=== PATIENT | male | born 1965 | race Caucasian/White ===

== ENCOUNTER 2018-12-07 10:06 | Day surgery (SDC) | payer SELFPAY ==
[~2018-12-07 10:06] MED LIST: CEFAZOLIN 2 Gram 2 GM/50 ML BAG IVPB ONE; CELECOXIB 100 MG CAPSULE PO ONE; FAMOTIDINE 20MG TABLET PO ONE; MECLIZINE 25 MG TABLET PO ONE; METOCLOPRAMIDE 10 MG TABLET PO ONE
[2018-12-07] MEDS ORDERED: EPHEDRINE SULFATE 50 MG/ML ML IV ONE (10:07)
[2018-12-07] MEDS ORDERED: LIDOCAINE 2% MDV (20MG/ML) 20ML VIAL IV ONE (10:07)
[2018-12-07] MEDS ORDERED: 0.9 % SODIUM CHLORIDE 10 ML VIAL IVP ONE (10:07)
[2018-12-07] MEDS ORDERED: GLYCOPYRROLATE 0.2 MG/ML ML IV ONE (10:07)
[2018-12-07] MEDS ORDERED: ATROPINE SULFATE 0.4 MG/ML 20ML IVP ONE (10:07)
[2018-12-07] MEDS ORDERED: ROPIVACAINE HCL (NAROPIN) /PF 5MG/ML 20ML VIAL IV ONE (10:07)
[2018-12-07] MEDS ORDERED: DEXAMETHASONE 4 MG/ML 1ML VIAL IVP ONE (10:07)
[2018-12-07] MEDS ORDERED: MIDAZOLAM HCL 2MG/2ML VIAL IV ONE (10:07)
[2018-12-07] MEDS ORDERED: PROPOFOL 10 MG/ML VIAL IV ONE (10:07)
[2018-12-07] MEDS ORDERED: FENTANYL PF 100MCG/2ML VIAL IV ONE (10:07)
[2018-12-07] MEDS ORDERED: RINGERS SOLUTION,LACTATED 1,000 ML IV ONE (10:30)
[2018-12-07] MEDS: CEFAZOLIN 2 Gram 2 GM/50 ML BAG IVPB ONE (10:48)
[2018-12-07] MEDS ORDERED: RINGERS SOLUTION,LACTATED 200 ML IV ONE (12:51)
[2018-12-07] MEDS ORDERED: NALOXONE 0.4 MG/1 ML VIAL IVP PRN (13:45)
[2018-12-07] MEDS ORDERED: ZOLPIDEM TARTRATE 5 MG TABLET PO PRN (13:45)
[2018-12-07] MEDS ORDERED: METOCLOPRAMIDE HCL 10 MG/2 ML VIAL IVP PRN (13:45)
[2018-12-07] MEDS ORDERED: HYDROMORPHONE HCL 2 MG/ML VIAL IV PRN (13:45)
[2018-12-07] MEDS ORDERED: ACETAMINOPHEN 325 MG TAB PO PRN (13:45)
[2018-12-07] MEDS ORDERED: MAGNESIUM HYDROXIDE 30 ML UDC PO PRN (13:45)
[2018-12-07] MEDS ORDERED: HYDROCODONE/APAP 5/325MG TABLET PO PRN ×2 (13:45)
[2018-12-07] MEDS ORDERED: DIPHENHYDRAMINE HCL 25 MG CAPSULE PO PRN (13:45)
[2018-12-07] MEDS ORDERED: OXYCODONE HCL/APAP 5MG/325MG TABLET PO PRN ×2 (13:45)
[2018-12-07] MEDS ORDERED: AL HYDROX/MAG HYDROX 30ML UD PO PRN (13:45)
[2018-12-07] MEDS ORDERED: ONDANSETRON HCL IV 4 MG/2 ML VIAL IVP PRN (13:45)
[2018-12-07] MEDS ORDERED: TRAMADOL HCL 50 MG TABLET PO PRN ×2 (13:45)
[2018-12-07] MEDS ORDERED: SENNOSIDES/DOCUSATE SODIUM UD CAPSULE PO PRN (13:45)
[2018-12-07] MEDS: RINGERS SOLUTION,LACTATED 1,000 ML IV SCH (14:31)
[2018-12-07] MEDS ORDERED: TRANEXAMIC ACID 1,000 MG in 0.9 % SODIUM CHLORIDE 100ML 100 ML IVPB ONE (16:00)
--- NOTE | 2018-12-07 16:16 | Rehab Evaluation ---
Patient Information - Patient Information Diagnosis: osteoarthritis R hip Ordered Treatment: OT Evaluate and Treat Status: Initial Evaluation Surgery: Yes Date of Surgery: 12/07/18 (R REBECCA) Past Medical/Surgical Hx: PAST MEDICAL/SURGICAL HISTORY Past Surgical History LTHA 2013 LEFT KNEE SCOPE C SCOPE WISDOM TEETH EXTRACTION PMH - Respiratory Hx Respiratory Disorders Yes Hx Bronchitis Yes: NOTHING RECENT Hx Pneumonia Yes: A BABY Hx Sleep Apnea Yes Hx of CPAP Yes Hx of URI Yes: JUST GETTING OVER COLD Comment: no cold s/s now 11-30-18 PMH - Cardiovascular Hx Cardiovascular Disorders No Hx Hypertension Yes Exercise Tolerance Fair Comment: NOT ACTIVE HE USED TO BE DUE TO HIP AND BACK PAIN PMH - Neuro Hx Neurological Disorders Yes Hx Neuropathy Yes: RIGHT ARM /HAND R/T BACK PMH - GI Hx Gastrointestinal Disorders No Comment: NO DAIRY PRODUCTS PLEASE PMH - Hx Genitourinary Disorders No PMH - Endocrine Hx Endocrine Disorders No PMH - Musculoskeletal Hx Musculoskeletal Disorders Yes Hx Arthritis Yes: RIGHT HIP HAND PMH - Psych Hx Psychiatric Problems No PMH - Hematology/Oncology Hx Hematology/Oncology No Disorders Premorbid Status: Detail (Prior to admit, Pt was indep. all I/ADLs living with spouse in a 1 story home with 7 LADARIUS and wide bilat. hand-rails. The bathroom is equiped with a tub/shower, shower chair, and hand-held shower along with a raised toilet with grab bars. He has a hurricane cane. Spouse is available to assist as needed.) Social History: Detail Precautions: [place], Fall, Other (WBAT R LE; posterior hip prec.) - Time With Patient Total Time Spent With Patient (Min): 23 (1 eval (10:23-10:43)) Treatment Procedures: Detail (OT eval: low complexity) Subjective Information - Subjective Information Per Patient (Pt agreeable to OT eval. Spouse present.) Objective Data - Pain Pain Present: Yes Pain Scale Used: Numeric (1 - 10) (2/10 R hip) - Mental Status Patient Orientation: Oriented x3 - Visual Perception Appears within normal limits for therapeutic activities - ROM Within normal limits - Strength/Tone Within normal limits - Coordination Appears within normal limits for therapeutic activities - Bed Mobility Independent (Modified indep. bed mobility supine >< EOB with initial verbal instruction for successful techs to move R LE without breaking hip prec.) - Transfers Independent (Indep. sit >< stand from low surfaces to FWW, good safety awareness.) - Balance Balance Standing: Good - Sensation Intact - Gait Detail (Functional mobility within bedroom with FWW with supervision progressing to mod I.) - ADL's/IADL's Detail (OT educ. Pt and spouse on adaptive LB dressing tech with sock aide, low heel builder, and tedhose, Pt verbalizes understanding but spouse assists as she reports being available to assist at DC PRN. Educ. on modified tub TF and car TF to maintain hip prec. and on mod tech for kitchen and bathroom safety, Pt verbalizes understanding.) Therapy Assessment - Therapy Assessment Detail (Pt demos safety and mod. indep. with all ADLs and fxl mobility and has all necessary AD. Spouse available to assist as needed as DC. Rec DC home with spouse assist when medical ready.) Problem List - Problem List Occupational Therapy Problem List: Detail (No further OT needs identified.) Goals - Goals Occupational Therapy Goals: No further OT needs/goals identified. DC inpatient OT. Prognosis - Prognosis Good Plan - Plan Occupational Therapy Plan: No further OT needs/goals identified. DC inpatient OT services. Rec DC home with spouse assist when medically ready.
--- NOTE | 2018-12-07 16:26 | Rehab Evaluation ---
Patient Information - Patient Information Diagnosis: osteoarthritis R hip Ordered Treatment: PT Evaluate and Treat Status: Initial Evaluation Surgery: Yes Date of Surgery: 12/07/18 (R REBECCA) Past Medical/Surgical Hx: PAST MEDICAL/SURGICAL HISTORY Past Surgical History LTHA 2013 LEFT KNEE SCOPE C SCOPE WISDOM TEETH EXTRACTION PMH - Respiratory Hx Respiratory Disorders Yes Hx Bronchitis Yes: NOTHING RECENT Hx Pneumonia Yes: A BABY Hx Sleep Apnea Yes Hx of CPAP Yes Hx of URI Yes: JUST GETTING OVER COLD Comment: no cold s/s now 11-30-18 PMH - Cardiovascular Hx Cardiovascular Disorders No Hx Hypertension Yes Exercise Tolerance Fair Comment: NOT ACTIVE HE USED TO BE DUE TO HIP AND BACK PAIN PMH - Neuro Hx Neurological Disorders Yes Hx Neuropathy Yes: RIGHT ARM /HAND R/T BACK PMH - GI Hx Gastrointestinal Disorders No Comment: NO DAIRY PRODUCTS PLEASE PMH - Hx Genitourinary Disorders No PMH - Endocrine Hx Endocrine Disorders No PMH - Musculoskeletal Hx Musculoskeletal Disorders Yes Hx Arthritis Yes: RIGHT HIP HAND PMH - Psych Hx Psychiatric Problems No PMH - Hematology/Oncology Hx Hematology/Oncology No Disorders Premorbid Status: Detail (Prior to admit, Pt was indep. all I/ADLs living with spouse in a 1 story home with 7 stairs and wide bilat. hand-rails. The bathroom is equiped with a tub/shower, shower chair, and hand-held shower along with a raised toilet with grab bars. He has a hurricane cane and standard walker.) Social History: Detail Precautions: [place], Fall, Other (WBAT R LE; posterior hip prec.) - Time With Patient Total Time Spent With Patient (Min): 30 Treatment Procedures: Detail (Initial Evaluation) Subjective Information - Subjective Information Per Patient (The patient had complaints of R hip pain level 2 at the highest.) Objective Data - Mental Status Patient Orientation: Oriented x3 - Visual Perception Appears within normal limits for therapeutic activities - ROM Not within normal limits (The patient's R hip is within Total hip precautions. All other LE AROM is WNL) - Strength/Tone Not within normal limits (The patient's LE strength was not tested s/p surgery however functionally patient required assist to lift R LE. L LE strength was functional.) - Bed Mobility Needs Assist (The patient required minimal PA to lift R LE with supine to and from sit.) - Transfers Needs Assist (Not assessed due to patient feeling nauseous and lightheaded with sitting.) - Balance Balance Sitting: Good - Gait Detail (Patient did not ambulate due to nauseous and lightheaded when sitting.) Therapy Assessment - Therapy Assessment Detail (The patient's mobility was limited due to symptoms of nausea and lightheadedness when sitting. Feel the patient will progress well once symptoms decrease.) Problem List - Problem List Physical Therapy Problem List: Detail (1) Decreased R LE strength s/p surgery 2 ) Impaired ambulation s/p surgery) Goals - Goals Physical Therapy Goals: 1) The patient will ambulate independently with assistive device community distances WBAT on the R LE. 2) Patient will ambulate on stairs with supervision for safety using proper technique. 3) The patient will be independent with THR precautions and THR HEP. 4) The patient will be independent with bed mobility and transfers. Prognosis - Prognosis Good Plan - Plan Physical Therapy Plan: PT 1-2 sessions for gait training on levels and stairs, transfer training, bed mobility and instruction in THR HEP.
[2018-12-07] MEDS: CEFAZOLIN 1 Gram 1 GM/50 ML BAG IVPB SCH ×2 (19:29→20:13)
[2018-12-07] MEDS: ASPIRIN 325 MG TAB ENTERIC-COATED PO SCH (21:16)
[2018-12-08] MEDS: CEFAZOLIN 1 Gram 1 GM/50 ML BAG IVPB SCH ×5 (03:04→11:43)
[2018-12-08] MEDS: RINGERS SOLUTION,LACTATED 1,000 ML IV SCH (06:55)
[2018-12-08] MEDS ORDERED: AMLODIPINE BESYLATE 5MG TAB PO SCH (10:00)
[2018-12-08] MEDS: ASPIRIN 325 MG TAB ENTERIC-COATED PO SCH (10:53)
[2018-12-08] MEDS: CEFAZOLIN 2 Gram 2 GM/50 ML BAG IVPB ONE (10:54)
--- NOTE | 2018-12-08 17:02 | Physical Therapy Tx Note ---
Physical Therapy Tx Note - Treatment Note Tolerated: Good Total Time Spent With Patient: 25 Physical Therapy Tx Note: Detail (The patient was up in chair when PT arrived. The patient ambulated with front wheeled walker a distance of 134 feet x 1 WBAT on the R LE independently. The patient ambulated on 3 stairs with one railing and folded walker using proper technique with supervision for safety. The patient was indpendent with bed mobility with use of strap/L LE lifting R LE while maintaining proper hip alignment. The patient completed THR HEP including : supine hip abduction, heel slides, gluteal sets, quad sets, hamstring sets, ankle pumps. The patient demonstrated good understanding and proper use of THR precautions. The patient has met all inpatient goals and is discharged from inpatient PT.) Physical Therapy Problem List: Detail (1) Decreased R LE strength s/p surgery 2 ) Impaired ambulation s/p surgery) Physical Therapy Goals: 1) The patient will ambulate independently with assistive device community distances WBAT on the R LE.(Goal Met). 2) Patient will ambulate on stairs with supervision for safety using proper technique.( Goal Met). 3) The patient will be independent with THR precautions and THR HEP( Goal Met). 4) The patient will be independent with bed mobility and transfers.( Goal Met) Physical Therapy Plan: The patient has met all inpatient PT goals and is to continue with outpatient PT.
--- NOTE | 2018-12-09 11:20 | Discharge Summary ---
DATE OF ADMISSION: 12/07/2018 DATE OF DISCHARGE: 12/08/2018 ADMISSION DIAGNOSIS: Osteoarthritis of the right hip. DISCHARGE DIAGNOSIS: Osteoarthritis of the right hip. OPERATIVE PROCEDURE: Elective right total hip arthroplasty. DESCRIPTION: This 53-year-old male was taken to the operating room for elective total hip arthroplasty on 12/07/2018 and tolerated the operative procedure well and progressed satisfactorily with physical therapy and was ready for discharge on the first postoperative day. The patient will follow up in the clinic in 2 weeks. He was instructed to wear CLINTON hose during the day and remove them at night. He will have outpatient physical therapy and he is to take aspirin 325 mg daily and he was given a prescription for [place] 5/325, #40, 1 every 4 hours as necessary for pain. Routine wound care instructions were given. Should he have any problems prior to being seen, he was instructed to call my office. NERY
--- NOTE | 2018-12-09 11:20 | Operative Note ---
DATE OF SURGERY: 12/07/2018 SURGEON: Aidan Roth DO PREOPERATIVE DIAGNOSIS: Primary osteoarthritis of the right hip. POSTOPERATIVE DIAGNOSIS: Primary osteoarthritis of the right hip. OPERATION: Right total hip arthroplasty. DESCRIPTION OF PROCEDURE: This 53-year-old male was taken to the operating room and placed in the supine position on the operating room table after spinal anesthesia had been induced. He was then placed in the left lateral decubitus position and bolstered perpendicular to the floor. The right hip was then prepped with Hibiclens and draped in the usual sterile fashion. A lateral hip incision was made dissecting down through the skin and subcutaneous tissue. Hemostasis obtained with the electrocautery. The tensor was divided in line with the skin incision. Gluteus marcelino was split to expose the short rotators posteriorly. Self-retaining hip retractor was used. The short rotators detached from the posterior aspect of the greater trochanter neck, and excellent exposure to the hip was then seen. Steinmann pin retractors were placed as retractors, one superiorly, one posterosuperiorly, and one posteroinferiorly. Subsequently, a jaki was made on the greater trochanter and this was measured to the proximal pin which was reestablished at the completion of the procedure. The hip was then dislocated and the neck amputated. A cobra retractor placed anteriorly. We began reaming with a size 50 mm reamer in 1 mm increments to a 52 to the base of the condyloid notch. Osteophytes were removed superiorly, anteriorly, inferiorly on the hip acetabulum. The trial acetabulum was placed, and this was seen to be the appropriate size. Subsequently, a size 52 mm Trident cup was impacted into place with secure fixation. This was done at approximately 45 degrees of abduction and 20 degrees of anteversion. The trial liner was placed. We then directed our attention to the proximal femur and a box osteotome was used to cut the proximal femur open, and hand meat salter was placed down the shaft. Using an alternating ream/broach technique, a size 6 broach was countersunk and the calcar reamer was used to plane the calcar. All osteophytes were removed. We then continued reaming with a size 6 and after the 7 broach was seen to be slightly too small, we decided to place an 8. The 8 reamer and broach were subsequent placed with good stability. Subsequently, trial reduction was accomplished with a 30 mm neck and a 0 degree head. Excellent range of motion was noted, 110 degrees of flexion, internal rotation to approximately 70 degrees, external rotation and abduction were accomplished with no instability being identified. The trial components were then removed and the wound copiously irrigated with pulse lavage lactated Ringer's solution. The X3 liner was impacted into place. This was a 36 mm liner and this was followed by the insertion of the size 8 collared Secur-Fit femur, and the size 36 mm plus 0 Biolox head was used. The hip was then again reduced and taken through range of motion and found to be stable. The wound again copiously irrigated with lactated Ringer's solution. A drain was placed through a separate stab incision. The short rotators were reattached to the greater trochanter through drill holes, and #5 Ethibond suture was used to bring the short rotators and capsule back into its anatomic position. The tensor was then reapproximated with #2 Vicryl. The subcutaneous tissue was closed with 0 Vicryl. The skin was stapled. The patient taken to the recovery room in satisfactory condition after sterile dressings had been applied. GROSS PATHOLOGY: This patient had full-thickness articular cartilage loss of the right hip. There were osteophytes superiorly, anteriorly, and some inferiorly as well, and these were removed. The final components inserted were a Manny size 8 collared Secur-Fit femur, a size 52 mm Trident cup, a 36 mm X3 liner, and a 36 mm plus 0 Biolox head was used. CC: Esa Padron MD [facility]
== END 2018-12-08 12:27 | disposition home or self-care (01) ==
LOC: SUR 10:06 → MEDSURG 13:50 → SUR 12-08 12:27
PROVIDERS: ATTEND Orthopaedic Surgery
DX: M16.11 Unilateral primary osteoarthritis, right hip (principal); I10 Essential (primary) hypertension; G47.33 Obstructive sleep apnea (adult) (pediatric)
CPT/HCPCS: 27130; 01214; 64450; 94760; J3010; J0690 ×4; J1170; J3490; J2795; 76942; 97110; 97530; C1776; J7120

== ENCOUNTER 2019-04-04 11:44 | Observation (INO) | payer SELFPAY ==
--- NOTE | 2019-04-04 12:03 | Emergency Department Record ---
History of Present Illness - General Chief Complaint: Confusion Stated Complaint: CONFUSED Time Seen by Provider: 04/04/19 11:52 Source: Patient Mode of Arrival: Ambulatory Limitations: No limitations - History of Present Illness Initial Comments: The patient is here with family due to confusion over the last 2 hours. The patient was well this AM and was with his at 8am when she went to work. At about 10:30 am he called her and was acting confused. Over the next hour he was fairly forgetful and did not remember the events of the morning with his and was just not acting normally. On the way here to the hospital he got a little better and now seems mostly back to normal. The patient states he does now remember the events of the morning. He denies any recent YOUNG, CP, SOB, or SEAN. He does not take any prescription medicines and he has no hx of similar issues. MD Complaint: Confusion Onset/Timin -: Hour(s) Associated Symptoms: Denies other symptoms - [place] Coma Scale Eye Response: (4) Open spontaneously Motor Response: (6) Obeys commands Verbal Response: (5) Oriented Fouke Total: 15 - Related Data Home Medications Medication Instructions Recorded Confirmed Last Taken No Home Med [NO HOME MEDS] 04/04/19 04/04/19 Unknown Allergies Allergy/AdvReac Type Severity Reaction Status Date / Time lactose AdvReac HYPERSENSIT Verified 04/04/19 11:53 IVITY Travel Screening - Travel/Exposure Within Last 30 Days Have you traveled within the last 30 days?: No Review of Systems Constitutional: Denies: Chills, Fever Eyes: Denies: Eye discharge ENT: Denies: Congestion Respiratory: Denies: Cough, Dyspnea Cardiovascular: Denies: Arrhythmia Endocrine: Denies: Fatigue Gastrointestinal: Denies: Nausea Genitourinary: Denies: Dysuria Musculoskeletal: Denies: Arthralgia Past Medical History - SOCIAL HISTORY Smoking Status: Never smoker Alcohol Use: Occasional Drug Use: None - RESPIRATORY Hx Respiratory Disorders: Yes - CARDIOVASCULAR Hx Cardio Disorders: Yes Hx Hypertension: Yes - NEURO Hx Neuro Disorders: Yes Hx Neuropathy: Yes - GI Hx GI Disorders: No - Hx Genitourinary Disorders: No - ENDOCRINE Hx Endocrine Disorders: No - MUSCULOSKELETAL Hx Musculoskeletal Disorders: Yes Hx Arthritis: Yes (RIGHT HIP HAND) - PSYCH Hx Psych Problems: No - HEMATOLOGY/ONCOLOGY Hx Hematology/Oncology Disorders: No Family Medical History Any Significant Family History?: Yes Hx Diabetes: Brother/Sister Hx HTN: Father Physical Exam - General General Appearance: Alert, Oriented x3, Cooperative, No acute distress - Head Head exam: Atraumatic, Normocephalic - Eye Eye exam: Normal appearance, PERRL - ENT Throat exam: Normal inspection. negative: Tonsillar erythema, Tonsillar exudate - Neck Neck exam: Normal inspection. negative: Lymphadenopathy, Meningismus, Tenderness - Respiratory Respiratory exam: Normal lung sounds bilaterally. negative: Respiratory distress - Cardiovascular Cardiovascular Exam: Regular rate, Normal rhythm, Normal heart sounds. negative: Diastolic murmur, Systolic murmur - GI/Abdominal GI/Abdominal exam: Soft, Normal bowel sounds. negative: Tenderness - Extremities Extremities exam: Normal inspection, Full ROM, Normal capillary refill. negative: Tenderness - Neurological Neurological exam: Alert, Normal gait, Oriented X3, Other (Neg Drift and [place].). negative: Abnormal gait, Altered, Motor sensory deficit - Skin Skin exam: negative: Rash Course Vital Signs 04/04/19 11:48 Temperature 98.4 F Pulse Rate 69 Respiratory 18 Rate Blood Pressure 168/93 Pulse Ox 98 - Reevaluation(s) Reevaluation #1: The patient is doing very well at this time. He is very much neurologically intact and is answering all questions appropriately. I do feel the patient most likely had an episode of Transient Global Amnesia and do feel the prudent course of action is to monitor the patient in the hospital overnight and check carotid dopplers and a cardiac echo. The patient does agree to the plan. I then did discuss the case with Sabrina(ANALOG DESIGN ENGINEER) and she does accept the patient to the hospital for Dr. Lentz. 04/04/19 13:47 Medical Decision Making - Data Complexity MDM Data: Labs Ordered and/or Reviewed, X-Ray Ordered and/or Reviewed, EKG Ordered and/or Reviewed - Lab Data Result diagrams: 04/04/19 12:10 04/04/19 12:10 - EKG Data -: EKG Interpreted by Me EKG: No Acute Changes (LVH.) - Radiology Data Radiology results: Report reviewed (Head CT: Neg for acute changes, nonspecific deep white matter changes, etiology ?.) Disposition Disposition: Admit Clinical Impression: TIA (transient ischemic attack) Disposition: Still a Patient at [facility] Decision to Admit: Admit from ER Decision to Admit Date: 04/04/19 Decision to Admit Time: 13:50 Accepting Physician: Tor Time Discussed w/Accepting Physician: 13:50 Condition: (2) Stable Forms: Patient Portal Access Time of Disposition: 13:50 Quality - Quality Measures Quality Measures: N/A - Blood Pressure Screening View Details: Yes Does Patient Have Any of the Following: No Blood Pressure Classification: Hypertensive Reading Systolic Measurement: 168 Diastolic Measurement: 93 Screening for High Blood Pressure: < First Hypertensive BP, F/U Documented > [G8950] First Hypertensive Follow-up Interventions: Referral to alternative/primary care provider.
[2019-04-04 12:16] LABS: ABSOLUTE NEUTROPHIL COUNT 4.41; BASO % 0.6 % (0-6); GRAN % 69.7 % (47-80); HEMATOCRIT 44.8 % (42.0-52.0); HEMOGLOBIN 15.2 gm/dl (14.0-18.0); LYMPH % 16.6 % (16-45); MEAN CELL VOLUME 79.4 fl (81-97); MEAN CORPUSCULAR HGB CONC 33.9 g/dl (32-36); MEAN PLATELET VOLUME 10.6 fl (7.4-10.4); MONO % 10.1 % (0-9); PLATELET COUNT 293 K/uL (130-400); RED BLOOD COUNT 5.64 M/uL (4.40-5.70); RED CELL DISTRIBUTION WIDTH 13.9 % (11.5-14.5); WHITE BLOOD COUNT W/O DIFF 6.3 K/uL (4.2-12.2)
[2019-04-04 12:31] LABS: BLOOD UREA NITROGEN 18 mg/dL (6-20)
[2019-04-04 12:32] LABS: CREATININE 0.7 mg/dL (0.7-1.2); EST GLOMERULAR FILTRATION RATE > 60 mL/min; TOTAL PROTEIN 6.8 g/dL (6.6-8.7)
[2019-04-04 12:33] LABS: PARTIAL THROMBOPLASTIN TIME 25.9 SECONDS (24.5-39.1); PROTHROMBIN TIME (PATIENT) 10.5 SECONDS (9.5-12.1)
[2019-04-04 12:34] LABS: GLUCOSE,RANDOM 125 mg/dL (74-109)
[2019-04-04 12:37] LABS: ALB/GLOB RATIO 2.1 (1.1-1.8); ALBUMIN 4.6 g/dL (4.0-5.0); ALKALINE PHOSPHATASE 64 U/L (40-129); ALT/SGPT 21 U/L (<41); AST/SGOT 20 U/L (10.0-50.0)
[2019-04-04 12:47] LABS: THYROID STIMULATING HORMONE 2.25 uIU/mL (0.270-4.20)
[2019-04-04 13:04] LABS: AMPHETAMINE SCREEN URINE NOT DETECTED; BARBITURATE SCREEN URINE NOT DETECTED; BENZODIAZEPINE SCREEN URINE NOT DETECTED; COCAINE SCREEN URINE NOT DETECTED; METHADONE SCREEN URINE NOT DETECTED; METHAMPHETAMINE SCREEN NOT DETECTED; OPIATE SCREEN URINE NOT DETECTED; OXYCODONE SCREEN URINE NOT DETECTED; PHENCYCLIDINE SCREEN URINE NOT DETECTED; PROPOXYPHENE SCREEN URINE NOT DETECTED; THC SCREEN URINE NOT DETECTED; TRICYCLIC ANTIDEPRESSANT SCRN NOT DETECTED
[2019-04-04] MEDS ORDERED: ASPIRIN 325 MG TABLET PO ONE (13:28)
[2019-04-04] MEDS ORDERED: ACETAMINOPHEN 325 MG TAB PO PRN (14:08)
--- NOTE | 2019-04-04 14:10 | Emergency Department Record ---
History of Present Illness - General Chief Complaint: Confusion Stated Complaint: CONFUSED Time Seen by Provider: 04/04/19 11:52 Source: Patient Mode of Arrival: Ambulatory Limitations: No limitations - History of Present Illness Onset/Timin -: Hour(s) - [place] Coma Scale Eye Response: (4) Open spontaneously Motor Response: (6) Obeys commands Verbal Response: (5) Oriented Halie Total: 15 - Related Data Home Medications: Home Medications Medication Instructions Recorded Confirmed Last Taken No Home Med [NO HOME MEDS] 04/04/19 04/04/19 Unknown Allergies/Adverse Reactions: Allergies Allergy/AdvReac Type Severity Reaction Status Date / Time lactose AdvReac HYPERSENSIT Verified 04/04/19 11:53 IVITY Travel Screening - Travel/Exposure Within Last 30 Days Have you traveled within the last 30 days?: No Review of Systems Constitutional: Denies: Chills, Fever Eyes: Denies: Eye discharge ENT: Denies: Congestion Respiratory: Denies: Cough, Dyspnea Cardiovascular: Denies: Arrhythmia Endocrine: Denies: Fatigue Gastrointestinal: Denies: Nausea Genitourinary: Denies: Dysuria Musculoskeletal: Denies: Arthralgia Past Medical History - SOCIAL HISTORY Smoking Status: Never smoker Alcohol Use: Occasional Drug Use: None - RESPIRATORY Hx Respiratory Disorders: Yes - CARDIOVASCULAR Hx Cardio Disorders: Yes Hx Hypertension: Yes - NEURO Hx Neuro Disorders: Yes Hx Neuropathy: Yes - GI Hx GI Disorders: No - Hx Genitourinary Disorders: No - ENDOCRINE Hx Endocrine Disorders: No - MUSCULOSKELETAL Hx Musculoskeletal Disorders: Yes Hx Arthritis: Yes (RIGHT HIP HAND) - PSYCH Hx Psych Problems: No - HEMATOLOGY/ONCOLOGY Hx Hematology/Oncology Disorders: No Family Medical History Any Significant Family History?: Yes Hx Diabetes: Brother/Sister Hx HTN: Father Physical Exam - General Limitations: No limitations Course Vital Signs 04/04/19 04/04/19 11:48 13:30 Temperature 98.4 F Pulse Rate 69 Pulse Rate [ 71 Pulse Ox Probe] Respiratory 18 18 Rate Blood Pressure 168/93 Blood Pressure 170/99 [Left Arm] Pulse Ox 98 97 - Reevaluation(s) Reevaluation #1: The patient had already been admitted when we heard that US was only available until 3pm today. Due to that fact I did discuss the need to order his carotid Doppler tests EDDI. I did talk with Sabrina (GREER) and she assured me that if I order them now she will F/U on the results. Because of that plan I did order the test. 04/04/19 14:09 Medical Decision Making - Lab Data Result diagrams: 04/04/19 12:10 04/04/19 12:10 Lab Results 04/04/19 04/04/19 04/04/19 Range/Units 12:10 12:10 12:10 WBC 6.3 (4.2-12.2) K/uL RBC 5.64 (4.40-5.70) M/uL Hgb 15.2 (14.0-18.0) gm/dl Hct 44.8 (42.0-52.0) % MCV 79.4 L (81-97) fl MCH 27.0 (27-33) pg MCHC 33.9 (32-36) g/dl RDW 13.9 (11.5-14.5) % Plt Count 293 (130-400) K/uL MPV 10.6 H (7.4-10.4) fl Gran % 69.7 (47-80) % Lymphocytes % 16.6 (16-45) % Monocytes % 10.1 H (0-9) % Eosinophils % 3.0 (0-6) % Basophils % 0.6 (0-6) % Absolute Neutrophils 4.41 PT 10.5 (9.5-12.1) SECONDS INR 1.0 APTT 25.9 (24.5-39.1) SECONDS Sodium 141 (136-145) mmol/L Potassium 4.0 (3.4-4.5) mmol/L Chloride 102 (98-107) mmol/L Carbon Dioxide 27.0 (22-29) mmol/L Anion Gap 12.0 (7-16) BUN 18 (6-20) mg/dL Creatinine 0.7 (0.7-1.2) mg/dL Estimated GFR > 60 mL/min Random Glucose 125 H (74-109) mg/dL Calcium 9.3 (8.6-10.0) mg/dL Total Bilirubin 0.40 (0.2-1.0) mg/dL AST 20 (10.0-50.0) U/L ALT 21 (<41) U/L Alkaline Phosphatase 64 (40-129) U/L Total Protein 6.8 (6.6-8.7) g/dL Albumin 4.6 (4.0-5.0) g/dL Globulin 2.2 (1.4-4.8) gm/dL Albumin/Globulin Ratio 2.1 H (1.1-1.8) TSH 2.25 (0.270-4.20) uIU/mL Urine Opiates Screen Ur Oxycodone Screen Urine Methadone Screen Ur Propoxyphene Screen Ur Barbituates Screen Ur Tricyclics Screen Ur Phencyclidine Scrn Ur Amphetamine Screen U Methamphetamines Scrn U Benzodiazepines Scrn Urine Cocaine Screen Urine Cannabis Screen 04/04/19 Range/Units 12:50 WBC (4.2-12.2) K/uL RBC (4.40-5.70) M/uL Hgb (14.0-18.0) gm/dl Hct (42.0-52.0) % MCV (81-97) fl MCH (27-33) pg MCHC (32-36) g/dl RDW (11.5-14.5) % Plt Count (130-400) K/uL MPV (7.4-10.4) fl Gran % (47-80) % Lymphocytes % (16-45) % Monocytes % (0-9) % Eosinophils % (0-6) % Basophils % (0-6) % Absolute Neutrophils PT (9.5-12.1) SECONDS INR APTT (24.5-39.1) SECONDS Sodium (136-145) mmol/L Potassium (3.4-4.5) mmol/L Chloride (98-107) mmol/L Carbon Dioxide (22-29) mmol/L Anion Gap (7-16) BUN (6-20) mg/dL Creatinine (0.7-1.2) mg/dL Estimated GFR mL/min Random Glucose (74-109) mg/dL Calcium (8.6-10.0) mg/dL Total Bilirubin (0.2-1.0) mg/dL AST (10.0-50.0) U/L ALT (<41) U/L Alkaline Phosphatase (40-129) U/L Total Protein (6.6-8.7) g/dL Albumin (4.0-5.0) g/dL Globulin (1.4-4.8) gm/dL Albumin/Globulin Ratio (1.1-1.8) TSH (0.270-4.20) uIU/mL Urine Opiates Screen Not detected Ur Oxycodone Screen Not detected Urine Methadone Screen Not detected Ur Propoxyphene Screen Not detected Ur Barbituates Screen Not detected Ur Tricyclics Screen Not detected Ur Phencyclidine Scrn Not detected Ur Amphetamine Screen Not detected U Methamphetamines Scrn Not detected U Benzodiazepines Scrn Not detected Urine Cocaine Screen Not detected Urine Cannabis Screen Not detected Disposition Clinical Impression: TIA (transient ischemic attack) Disposition: Still a Patient at [facility] Condition: (2) Stable Quality - Quality Measures Quality Measures: N/A - Blood Pressure Screening View Details: Yes Does Patient Have Any of the Following: No Blood Pressure Classification: Hypertensive Reading Systolic Measurement: 168 Diastolic Measurement: 93 Screening for High Blood Pressure: < First Hypertensive BP, F/U Documented > [G8950] First Hypertensive Follow-up Interventions: Referral to alternative/primary care provider.
[2019-04-04] MEDS ORDERED: HYDRALAZINE 20MG/ML VIAL IV PRN (14:48)
[2019-04-04] MEDS: LISINOPRIL 5 MG TABLET PO SCH (16:46)
[2019-04-04] MEDS ORDERED: HYDRALAZINE HCL 25 MG TABLET PO ONE (17:41)
[2019-04-04] MEDS ORDERED: HYDRALAZINE HCL 25 MG TABLET PO SCH (22:00)
[2019-04-04] MEDS: HYDRALAZINE HCL 25 MG TABLET PO SCH (22:42)
--- NOTE | 2019-04-05 07:32 | CT SCAN REPORT ---
EXAM: CT OF THE BRAIN WITHOUT CONTRAST HISTORY: EPISODE OF CONFUSION THIS MORNING. NO KNOWN INJURY. TECHNIQUE: Routine noncontrast CT of the brain was obtained. Comparison: None. FINDINGS: The ventricles and subarachnoid spaces are normal in size. There is no evidence of large territorial infarct. Subcortical white matter lucencies, mild in degree are noted within the superior frontal lobes, right greater than left. These are nonspecific. No other area of abnormally increased or decreased attenuation is noted throughout the brain substance. No abnormal extraaxial fluid collection is seen. No acute skull abnormality. No evidence of active sinusitis. The mastoid air cells and middle ear cavities, to the extent visualized are clear. The orbits as visualized are unremarkable. IMPRESSION: 1. NO CT EVIDENCE OF ACUTE MAJOR VESSEL INFARCT, INTRACRANIAL HEMORRHAGE NOR MASS. 2. SMALL AREAS OF LUCENCY IN THE SUBCORTICAL WHITE MATTER OF THE CEREBRAL HEMISPHERES, PRIMARILY IN THE FRONTAL LOBES. THESE ARE NONSPECIFIC. DIAGNOSTIC CONSIDERATIONS INCLUDE; AREAS OF CHRONIC SMALL VESSEL ISCHEMIA, POST TRAUMATIC/INFLAMMATORY GLIOSIS, THE SEQUELA OF MIGRAINE HEADACHES, THE SEQUELA OF VASCULITIS AND LESS LIKELY A DEMYELINATING PROCESS. JOB NUMBER: [id number] [facility]
--- NOTE | 2019-04-05 07:40 | US CAROTID DOPPLER REPORT ---
EXAM: BILATERAL CAROTID DOPPLER ULTRASOUND HISTORY: EPISODE OF CONFUSION THIS MORNING. TECHNIQUE: Randle scale, color Doppler and duplex Doppler evaluation of the cervical arteries was performed. Comparison: None. FINDINGS: On randle scale imaging, there is minimal smoothly marginated echogenic plaque at the origin of the right internal carotid artery. Randle scale and color Doppler imaging suggests this causes less than 50% stenosis. No other plaque demonstrated within the cervical arteries. Vessel Right Peak Systolic/ End Diastolic Velocities Left Peak Systolic/ End Diastolic Velocities Proximal Common Carotid Artery 102 cm/s /15 cm/s 134 cm/s /8 cm/s Mid Common Carotid Artery 89 cm/s /12 cm/s 85 cm/s /13 cm/s Distal Common Carotid Artery 57 cm/s /13 cm/s 49 cm/s /8 cm/s Proximal Internal Carotid Artery 41 cm/s /11 cm/s 44 cm/s /10 cm/s Mid Internal Carotid Artery 44 cm/s /13 cm/s 43 cm/s /12 cm/s Distal Internal Carotid Artery 76 cm/s /23 cm/s 66 cm/s /17 cm/s Carotid Bulb 29 cm/s /7 cm/s 63 cm/s /7 cm/s Proximal External Carotid Artery 70 cm/s /7 cm/s 73 cm/s /6 cm/s Vertebral Artery 49 cm/s/13 cm/s 50 cm/s/15 cm/s The ICA/CCA ratio on the right is 1.3. The ICA/CCA ratio on the left is 1.4. Antegrade flow is demonstrated within each vertebral artery. Doppler waveforms are unremarkable. IMPRESSION: MINIMAL SMOOTHLY MARGINATED ECHOGENIC PLAQUE AT THE ORIGIN OF THE RIGHT INTERNAL CAROTID ARTERY CAUSES LESS THAN 50% STENOSIS. NO OTHER ABNORMALITY IDENTIFIED. JOB NUMBER: [id number] MTDD
[2019-04-05] MEDS ORDERED: ASPIRIN 325 MG TABLET PO SCH (10:00)
[2019-04-05] MEDS: HYDRALAZINE HCL 25 MG TABLET PO SCH (10:24)
[2019-04-05] MEDS: LISINOPRIL 5 MG TABLET PO SCH (10:24)
[2019-04-05] MEDS ORDERED: LISINOPRIL 10 MG TABLET PO ONE (12:27)
[2019-04-05] MEDS ORDERED: ENOXAPARIN 40 MG/0.4 ML SYR SQ SCH (12:30)
--- NOTE | 2019-04-05 12:33 | Discharge Note ---
VTE H&P Assessment - Risk for VTE Risk for VTE: Yes Risk Level: Moderate Risk Assessment Date: 04/05/19 Risk Assessment Time: 12:29 VTE Orders Placed or Will Be Placed: Yes Discharge Medications - Discharge Medications Prescriptions: Aspirin, Regular 325 mg PO DAILY #100 tablet Lisinopril 20 mg PO DAILY #30 tab Home Medications: Ambulatory Orders Acetaminophen [Tylenol 325Mg] 650 mg PO Q4H PRN tablet 04/05/19 [Last Taken Unknown] Aspirin, Regular 325 mg PO DAILY #100 tablet 04/05/19 [Last Taken Unknown] Lisinopril 20 mg PO DAILY #30 tab 04/05/19 [Last Taken Unknown] Discharge Note - Date Date of Discharge Note: 04/05/19 Disposition: Home, Self-Care Condition: (1) Good Additional Instructions: follow up with Dr. Padron in one week and needs a neurology appointment for his T IA he had. take aspirin 325 mg per day take lisinopril 20 mg per day check BP three times a week need to have lipids checked as an outpatient exercise walking 45 minutes per day try to loss 20 pounds low chol diet eccho results are pending at time of discharge carotid doppler results were done showing no significant blockage less than 50 % with some plaquing on the left internal carotid artery EKG NSR Forms: Patient Portal Access Activity at Discharge: Increase Activity as Tolerated Diet at Discharge: Low Fat, Low Cholesterol
--- NOTE | 2019-04-05 14:01 | History and Physical Report ---
CHIEF COMPLAINT: Confusion, amnesia, hypertension, possible TIA. HISTORY OF PRESENT ILLNESS: This 53-year-old male was at home. He was normal at 8 a.m. at breakfast time with his . His left for work. He called the about 10:30 a.m. and was confused and not remembering things. The came home and brought him to the hospital for evaluation. He pretty much was clearing upon going to the emergency department. Dr. Baugh evaluated him in the emergency department and he is back to himself while in the emergency department. The said about 1 p.m. today he was back to normal. He came into the emergency department about 12:02 p.m. So it was approximately 2-3 hours of confusion, not acting appropriately, and he does not remember the episode. Dr. Baugh diagnosed him with global amnesia, TIA. The patient was admitted to the hospital for observation through nurse practitioner Willow Lundberg coming on for the on-call service in the hospital and I evaluated the patient, did the H&P today. In the emergency department, he had a carotid Doppler done which was less than 50% stenosis, some plaque in the right internal carotid artery. CT of the head was done. No acute changes were seen. Some chronic white matter changes were seen. PAST MEDICAL HISTORY: He has had arthritis. He had an episode of hypertension after a left hip replacement but that has resolved and he is not on any medications at this time. PAST SURGICAL HISTORY: Left hip replacement 2013, left knee scope, colonoscopy, wisdom teeth extraction. MEDICATIONS: None. ALLERGIES: LACTOSE. FAMILY/PSYCHOSOCIAL HISTORY: Brother and sister had diabetes. Father had hypertension. The patient never smoked. Occasional alcohol use. No drug use. REVIEW OF SYSTEMS: HEENT: No upper respiratory infection symptoms, cough, cold, or congestion. Denies a headache. Cardiovascular: No chest pain, palpitations, or arrhythmia. Respiratory: No shortness of breath, cough, cold, or congestion. Gastrointestinal: No nausea, vomiting, diarrhea, black stools, or bloody stools. Genitourinary: No dysuria, hematuria, frequency, or burning on urination. Musculoskeletal: He does have some arthritis and he has some low back pain from arthritis and degenerative joint disease. Neurological: No previous CVA, paralysis, or paresthesias. See Chief Complaint. He had an episode of confusion/amnesia for about 2-3 hours. Endocrine: No diabetes or thyroid disease. Integument: No rash, ulcers, change in moles, or yellow skin. PHYSICAL EXAMINATION: VITALS: Height 5 feet 8 inches, weight 196 pounds. The highest vital sign was 192/108. The most recent blood pressure was 167/94. In the emergency department, his blood pressure was 195/102. His most recent pulse 60. Temperature 97.9. Respiration 16. Pulse os 98% on room air. HEENT: Pupils are equal, round, and reactive to light and accommodation. Extraocular muscles are intact. Throat is clear. Nose is clear. Tympanic membranes are chairez. NECK: Supple. No jugular venous distention. No hepatojugular reflux. No carotid bruits. Thyroid is smooth. CARDIOVASCULAR: Regular rate and rhythm without murmurs, clicks, rubs, or gallops. RESPIRATORY: Clear to auscultation and percussion. EKG showing normal sinus rhythm with a left ventricular hypertrophy. ABDOMEN: Soft, nontender. No hepatosplenomegaly, no masses, no tenderness. Bowel sounds are active. No bruits. EXTREMITIES: No pitting edema. No cyanosis, no clubbing. Full range of motion. Peripheral pulses are good. BREASTS: Normal male breasts. RECTAL: Deferred. GENITALIA: Deferred. NEUROLOGIC: Cranial nerves II-XII intact. No gross defects. Sensation normal, strength normal. Deep tendon reflexes equal bilaterally with Babinski negative. MENTAL STATUS: Alert and oriented x3. He did have an episode of confusion 2-3 hours which has resolved. IMPRESSION: 1. Transient ischemic attack. 2. Possible amnesia. 3. Confusion secondary to transient ischemic attack. 4. Hypertension. PLAN: Control the blood pressure lightly to let him auto-regulate. carotid Dopplers were done showing no significant stenosis in the carotid Dopplers. He had a little plaque in the right internal carotid but less than 50%. Head CT showing chronic changes but no acute infarction, tumor, or mass effect seen. We will add on hydralazine 25 mg q.6 h. Continue lisinopril. Neuro checks. MTDD
--- NOTE | 2019-04-05 15:30 | Discharge Summary ---
DATE: 04/05/2019 at 12:41 p.m. DISCHARGE DIAGNOSES: 1. Transient ischemic attack. 2. Amnesia secondary to transient ischemic attack. 3. Hypertension, possibly reactive. ATTENDING PHYSICIAN: Paulo Klein DO REASON FOR HOSPITALIZATION: The patient had a 2- to 3-hour episode of being confused. It started about 10 a.m. and resolved at about 1 p.m. He denied a headache. No chest pain, no dyspnea, no abdominal pain. BP was slightly high. He was seen in the emergency department by Dr. Baugh, admitted to the hospital for a TIA. His highest blood pressure was 192/108. He was started on lisinopril 5 mg orally and hydrochlorothiazide 25 mg q.6 h. The patient remained neurologically intact. No further symptoms throughout the hospitalization. He was in for 24 hours. Testing that was done included CT of the head with white matter changes only. Carotid Doppler was done showing some blocking of the right internal carotid artery, less than 50% stenosis bilaterally. He had an echocardiogram done just prior to discharge which the results are pending. Other thoughts are that he should follow up with Neurology as an outpatient consult for potential further testing and possibly an MRI of the brain. MRI is not available at this hospital. He had an EKG showing normal sinus rhythm. No acute changes with a little bit of left ventricular hypertrophy, which tells me he probably has underlying hypertension. Cardiac monitoring throughout the hospitalization. No acute changes seen on the bus monitor. He was started on aspirin therapy 325 once a day. Given 1 shot of Lovenox for prevention of DVT. He is being discharged on lisinopril 20 mg a day for his hypertension. HOSPITAL COURSE: He was asymptomatic throughout the hospitalization except for while he was in the emergency department and the 2-3 hours prior to coming into the ER where he had confusion, amnesia, and some slurred speech according to his . CONDITION ON DISCHARGE: Stable and improved. DISCHARGE INSTRUCTIONS: Follow up with Dr. Padron in 1 week, his primary physician, for possible neurological referral for an outpatient neurology consult. Aspirin 325 daily, lisinopril 20 mg daily. Exercise, walking 45 minutes a day. Have the lipids checked as an outpatient or possible treatment, try to lose 20 pounds of weight. Low-cholesterol diet is recommended. NERY
== END 2019-04-05 14:00 | disposition home or self-care (01) ==
LOC: ER 11:44 → MEDSURG 14:01
PROVIDERS: ADMIT Internal Medicine; ATTEND Internal Medicine
DX: G45.9 Transient cerebral ischemic attack, unspecified (principal); R41.3 Other amnesia; I10 Essential (primary) hypertension; G62.9 Polyneuropathy, unspecified; M19.90 Unspecified osteoarthritis, unspecified site
CPT/HCPCS: 70450; 80053; 80305; 84443; 85025; 85610; 85730; 93005; 93010; 93306; 93880; 99217; 99220; 99285; J1650